=== PATIENT | male | born 1955 | race Hispanic/Latino ===

== ENCOUNTER 2018-04-10 16:18 | Emergency (ER) | payer MEDICAID ==
[2018-04-10 16:18] VITALS: BMI 21.6
[2018-04-10 16:48] VITALS: TEMP 98.7
[2018-04-10] MEDS ORDERED: Sodium Chloride 0.9% 1,000 ML IV ONE (17:32)
[2018-04-10] MEDS ORDERED: Sodium Chloride 0.9% 1,000 ML ONE (18:05)
[2018-04-10 18:06] LABS: BASO % 1.1 % (0.0-2.0); EOS # 0.1 K/uL (0.0-0.7); EOS % 3.3 % (0.0-4.0); HEMOGLOBIN 13.3 g/dL (12.0-18.0); LYMPH # 0.7 K/uL (1.0-4.3); LYMPH % 20.8 % (20.0-40.0); MEAN CELL VOLUME 99.1 fL (80.0-94.0); MEAN CORPUSCULAR HGB CONC 34.3 g/dL (33.0-37.0); MEAN PLATELET VOLUME 8.6 fL (7.2-11.7); MONO # 0.5 K/uL (0.0-0.8); MONO % 14.2 % (0.0-10.0); NEUT % 60.6 % (50.0-75.0); NRBC % 0.1 % (0.0-2.0); RBC 3.92 Mil/uL (4.40-5.90); RED CELL DISTRIBUTION WIDTH 13.6 % (11.5-14.5); WHITE BLOOD COUNT 3.2 K/uL (4.8-10.8)
[2018-04-10 18:25] LABS: ALB/GLOB RATIO 1.1 (1.0-2.1); ALBUMIN 4.7 g/dL (3.5-5.0); ALT/SGPT 141 U/L (21-72); AST/SGOT 213 U/L (17-59); BLOOD UREA NITROGEN 8 mg/dL (9-20); CALCIUM 9.3 mg/dl (8.6-10.4); GFR AFRICAN-AMERICAN > 60; GFR NON-AFRICAN AMERICAN > 60; LIPASE 129 U/L (23-300)
--- NOTE | 2018-04-10 18:45 | C.PDOC ---
Time Seen by Provider: 04/10/18 17:09 Chief Complaint (Nursing): Abdominal Pain Past Medical History Vital Signs: Last Vital Signs Temp 98.7 F 04/10/18 16:46 Pulse 71 04/10/18 16:46 Resp 16 04/10/18 16:46 BP 139/87 04/10/18 16:46 Pulse Ox 98 04/10/18 18:45 - Medical History PMH: Depression, Fractures (femur,knee,hip,adler,ankle,toe), HTN - [facility] Procedures ALCOHOL DETOXIFICATION (03/27/13) OTHER SKIN & SUBQ I D (01/02/14) Family History: States: Unknown Family Hx - Social History Hx Tobacco Use: Yes Hx Alcohol Use: Yes Hx Substance Use: No - Immunization History Hx Tetanus Toxoid Vaccination: No Hx Influenza Vaccination: No Hx Pneumococcal Vaccination: No ED Course And Treatment - Laboratory Results Result Diagrams: 04/10/18 18:01 04/10/18 18:01 O2 Sat by Pulse Oximetry: 98 Disposition - Disposition Forms: [facility] (Romanian) Physician Patient Turnover Patient Signed Over To: Bill Mccain Handoff Comments: penidng labs, reevaluation and disposition
--- NOTE | 2018-04-10 18:46 | C.PDOC ---
History Of Present Illness 62 y/o male presents to the ER complaining of left sided abdominal pain which has been present for the past 1 day. Patient describes the pain as sharp and notes that the pain is intermittent with fluctuation in intensity. Patient reports that he has diarrhea. Otherwise, he denies having nausea, vomiting, and urinary symptoms. Time Seen by Provider: 04/10/18 17:09 Chief Complaint (Nursing): Abdominal Pain History Per: Patient History/Exam Limitations: no limitations Onset/Duration Of Symptoms: Days Current Symptoms Are (Timing): Still Present Severity: Moderate Quality Of Discomfort: Sharp Associated Symptoms: Diarrhea. denies: Nausea, Vomiting Past Medical History Reviewed: Historical Data, Nursing Documentation, Vital Signs Vital Signs: Last Vital Signs Temp 98.7 F 04/10/18 16:46 Pulse 71 04/10/18 16:46 Resp 16 04/10/18 16:46 BP 139/87 04/10/18 16:46 Pulse Ox 98 04/10/18 18:52 - Medical History PMH: Depression, Fractures (femur,knee,hip,adler,ankle,toe), HTN Other Surgeries: Hx of surgeries - [facility] Procedures ALCOHOL DETOXIFICATION (03/27/13) OTHER SKIN & SUBQ I D (01/02/14) Family History: States: No Known Family Hx - Social History Hx Tobacco Use: Yes Hx Alcohol Use: Yes Hx Substance Use: No - Immunization History Hx Tetanus Toxoid Vaccination: No Hx Influenza Vaccination: No Hx Pneumococcal Vaccination: No Review Of Systems Except As Marked, All Systems Reviewed And Found Negative. Constitutional: Negative for: Fever, Chills Gastrointestinal: Positive for: Abdominal Pain, Diarrhea. Negative for: Nausea , Vomiting Physical Exam - Physical Exam Appears: Non-toxic, No Acute Distress Skin: Normal Color, Warm, Dry Head: Atraumatic, Normacephalic Eye(s): bilateral: Normal Inspection Nose: Normal Oral Mucosa: Moist Neck: Supple Chest: Symmetrical Cardiovascular: Rhythm Regular Respiratory: Normal Breath Sounds, No Rales, No Rhonchi, No Wheezing Gastrointestinal/Abdominal: Bowel Sounds ((+) bowel sounds), Soft, Tenderness ( lower left lateral tenderness), No Guarding, No Rebound Neurological/Psych: Oriented x3, Normal Speech ED Course And Treatment - Laboratory Results Result Diagrams: 04/10/18 18:01 04/10/18 18:01 O2 Sat by Pulse Oximetry: 98 (RA) Pulse Ox Interpretation: Normal Medical Decision Making Medical Decision Making: Assessment: Abdominal Pain Plan: --Labs --UA --CT- Abd & Pelv --X-Ray - Hip / Pelvis --Pepcid IV --Toradol IV --IV Fluids Updates: 19:00 Case signed out to Disposition - Disposition Disposition Time: 19:00 Condition: FAIR Forms: [facility] (Macedonian) - Clinical Impression Clinical Impression: Abdominal pain - Scribe Statement The provider has reviewed the documentation as recorded by the Amadaibe Merari Galarza Provider Attestation: All medical record entries made by the Amadaibe were at my direction and personally dictated by me. I have reviewed the chart and agree that the record accurately reflects my personal performance of the history, physical exam, medical decision making, and the department course for this patient. I have also personally directed, reviewed, and agree with the discharge instructions and disposition. Physician Patient Turnover Patient Signed Over To: Bill Mccain Handoff Comments: labs, ct scan and disposition
[2018-04-10 19:03] LABS: URINE BILIRUBIN NEGATIVE (NEGATIVE); URINE BLOOD NEGATIVE (NEGATIVE); URINE CLARITY Clear (Clear); URINE COLOR Yellow (YELLOW); URINE GLUCOSE (UA) NORMAL (Normal); URINE LEUKOCYTE ESTERASE NEG Leu/uL (Negative); URINE PROTEIN NEGATIVE (NEGATIVE)
[2018-04-10] MEDS ORDERED: Iodixanol 320 MG/ML 100 ML BOTTLE IV ONE (19:06)
--- NOTE | 2018-04-10 19:08 | RAD ---
PROCEDURE: Left Hip X-ray Radiographs. HISTORY: hip pain COMPARISON: CT scan of the abdomen pelvis dated 03/26/2016. FINDINGS: BONES: No acute fracture. Deformity of right iliac wing. Deformity of left femoral diaphysis. JOINTS: Bilateral hip narrowing. SOFT TISSUES: Normal. OTHER FINDINGS: None. IMPRESSION: No demonstrated acute fracture or dislocation. Bilateral hip degenerative changes. Old deformities of the right iliac wing and left femoral diaphysis.
[2018-04-10 21:59] VITALS: BP 160/91; PULSE 94; RESP 20; O2SAT 100
--- NOTE | 2018-04-11 07:58 | CT ---
PROCEDURE: CT Abdomen and Pelvis without intravenous contrast HISTORY: Abdominal pain COMPARISON: None. TECHNIQUE: Multiple contiguous axial images were performed through the abdomen and pelvis with the use of intravenous contrast. Subsequently, sagittal and coronal reformatted images were obtained. Radiation dose: Total exam DLP = 394 mGy-cm. This CT exam was performed using one or more of the following dose reduction techniques: Automated exposure control, adjustment of the mA and/or kV according to patient size, and/or use of iterative reconstruction technique. FINDINGS: LOWER THORAX: Unremarkable. LIVER: Mild fatty infiltration of the liver. GALLBLADDER AND BILE DUCTS: Unremarkable. PANCREAS: Unremarkable. No gross lesion or ductal dilatation. SPLEEN: Unremarkable. ADRENALS: Unremarkable. No mass. KIDNEYS AND URETERS: 6 millimeter nonobstructing calculus seen within the upper pole of the left kidney. VASCULATURE: Unremarkable. No aortic aneurysm. BOWEL: Unremarkable. No obstruction. No gross mural thickening. APPENDIX: No findings to suggest acute appendicitis. PERITONEUM: Unremarkable. No free fluid. No free air. LYMPH NODES: Unremarkable. No enlarged lymph nodes. BLADDER: Unremarkable. REPRODUCTIVE: Unremarkable. BONES: Old right iliac wing fracture. Degenerative changes present in the lower lumbar spine. OTHER FINDINGS: None. IMPRESSION: 6 millimeter nonobstructing calculus seen within the upper pole of the left kidney. Additional findings as above. These findings were preliminarily reported at 8:16 p[address]. on 04/10/[address] Nicholas Mahajan from [facility].
== END 2018-04-10 21:40 | disposition home or self-care (01) ==
LOC: C.ER 16:18
DX: R10.9 Unspecified abdominal pain (principal); I10 Essential (primary) hypertension; Z72.0 Tobacco use
CPT/HCPCS: 73502; 74177; 80053; 81001; 83690; 85025; 87086; 96374; 96375; 99285; J1885; J7030; Q9967

== ENCOUNTER 2018-12-18 18:04 | Inpatient (IN) | payer MEDICAID | END 2018-12-22 18:08 | LOC: C.ER 18:04 → C.6T 12-19 04:13 ==